=== PATIENT | female | born 1995 | race Caucasian/White ===

== ENCOUNTER → 2021-12-28 | Outpatient (CLI) | payer OTHER ==
[~2021-12-28] MED LIST: BUSPIRONE HCL7.5 MG PO; IBUPROFEN600 MG PO; LAMOTRIGINE 25 MG PO; NORCO 5-325 TA1 EACH PO; PREDNISONE 20 M20 MG PO; SRONYX 0.10-0.1 EACH PO; TRAZODONE HCL50 MG PO
== END ==
LOC: OPSV 17:42
PROVIDERS: Family Medicine
DX: R53.83 Other fatigue (principal)
CPT/HCPCS: 84436; 84443; 84480